=== PATIENT | male | born 1965 | race Caucasian/White ===

== ENCOUNTER 2017-06-17 11:22 | Inpatient (IN) | payer BC ==
[~2017-06-17] VITALS: Ht 185.4 cm; Wt 81.9 kg
[2017-06-17] MEDS ORDERED: MORPHINE SULFATE 8 MG/ML VIAL ONE (11:46)
[2017-06-17] MEDS ORDERED: KETOROLAC TROMETHAMINE 30MG/ML ONE (11:46)
[2017-06-17] MEDS ORDERED: SODIUM CHLORIDE 0.9% 1000ML 1,000 ML IV ONE (11:46)
[2017-06-17 11:48] LABS: APPEARANCE,URINE Cloudy (CLEAR); BASOPHILS % (AUTO) 0.4 % (0.0-5.0); BILIRUBIN,URINE Negative (NEGATIVE); COLOR,URINE Yellow (YELLOW); EOSINOPHILS % (AUTO) 0.4 % (0.0-8.0); GLUCOSE, URINE (UA) Negative (NEGATIVE); KETONES,URINE Trace mg/dL (NEGATIVE); LEUKOCYTE ESTERASE ,URINE Trace (NEGATIVE); MONOCYTES % (AUTO) 5.6 % (3.0-13.0); NEUTROPHILS % (AUTO) 85.6 % (40.0-77.0); NITRATE,URINE Negative (NEGATIVE); OCCULT BLOOD,URINE Negative (NEGATIVE); PH,URINE 8.5 (5.0-8.0); PLATELET COUNT (AUTO) 261 K/uL (130-400); PROTEIN,URINE Negative (NEGATIVE); RED BLOOD CELL COUNT(AUTO) 4.89 MIL/uL (4.50-6.20); RED CELL DISTRIBUTION WIDTH 12.9 % (11.0-15.5); WHITE BLOOD COUNT (AUTO) 12.8 K/uL (4.8-10.8)
[2017-06-17 12:08] LABS: AMORPHOUS SEDIMENT,UR Few /LPF (None Seen); BACTERIA,URINE Few /HPF (None Seen); RBC,URINE None Seen /HPF (0-1); SQUAMOUS EPITHELIAL CELL,UR Few /LPF (0-2)
[2017-06-17 12:10] LABS: ALBUMIN 4.1 g/dL (3.5-5.0); BILIRUBIN,DIRECT 0.2 mg/dL (0.0-0.3); BILIRUBIN,TOTAL 1.1 mg/dL (0.2-1.0); CREATININE 0.9 mg/dL (0.5-1.5); POTASSIUM 4.2 mmol/L (3.5-5.1)
[2017-06-17] MEDS ORDERED: LEVOFLOXACIN 750 MG/D5W 150 ML 150 ML ONE (13:01)
[2017-06-17] MEDS ORDERED: METRONIDAZOLE 500MG/100ML BAG 100 ML ONE (13:01)
[2017-06-17 16:00] VITALS: BP 125/62
[2017-06-17] MEDS ORDERED: HYDRALAZINE HCL 20 MG/ML VIAL IV PRN (17:30)
[2017-06-17] MEDS ORDERED: ONDANSETRON HCL 4 MG/2 ML VIAL IVP PRN (17:30)
[2017-06-17] MEDS: MORPHINE SULFATE 2 MG/ML 1ML SYG IM PRN (18:07)
[2017-06-17] MEDS: ENOXAPARIN SODIUM 40 MG/0.4 ML SYRINGE SQ SCH (18:08)
[2017-06-17] MEDS: SODIUM CHLORIDE 0.9% 1000ML 1,000 ML IV SCH (18:08)
[2017-06-17 19:24] VITALS: BP 101/59
[2017-06-17] MEDS: METRONIDAZOLE 500MG/100ML BAG 100 ML IV SCH ×2 (20:26→20:31)
[2017-06-17] MEDS: FAMOTIDINE/PF 20 MG/2 ML VIAL IV SCH (20:26)
[2017-06-18 00:26] VITALS: BP 121/71
[2017-06-18] MEDS: MORPHINE SULFATE 2 MG/ML 1ML SYG IM PRN ×2 (02:30→06:27)
[2017-06-18 04:18] VITALS: BP 128/69
[2017-06-18 04:59] LABS: BASOPHILS % (AUTO) 0.2 % (0.0-5.0); EOSINOPHILS % (AUTO) 0.1 % (0.0-8.0); HEMATOCRIT 41.2 % (42-54); LYMPHOCYTES % (AUTO) 6.2 % (21.0-51.0); MEAN CORPUSCULAR HEMOGLOBIN 31.7 pg (27.0-33.0); MEAN CORPUSCULAR HGB CONC 33.8 g/dL (32.0-36.0); MEAN CORPUSCULAR VOLUME 93.8 fL (79-99); MONOCYTES % (AUTO) 6.8 % (3.0-13.0); NEUTROPHILS % (AUTO) 86.7 % (40.0-77.0); PLATELET COUNT (AUTO) 226 K/uL (130-400); RED CELL DISTRIBUTION WIDTH 12.8 % (11.0-15.5)
[2017-06-18 05:10] LABS: CREATININE 0.9 mg/dL (0.5-1.5); POTASSIUM 4.1 mmol/L (3.5-5.1)
[2017-06-18] MEDS: METRONIDAZOLE 500MG/100ML BAG 100 ML IV SCH ×3 (06:04→21:13)
[2017-06-18] MEDS: SODIUM CHLORIDE 0.9% 1000ML 1,000 ML IV SCH ×2 (06:25→21:13)
[2017-06-18 08:00] VITALS: BP 130/74
[2017-06-18] MEDS ORDERED: MORPHINE SULFATE 2 MG/ML 1ML SYG IVP PRN (09:30)
[2017-06-18] MEDS: FAMOTIDINE/PF 20 MG/2 ML VIAL IV SCH ×2 (09:45→21:13)
[2017-06-18] MEDS: ENOXAPARIN SODIUM 40 MG/0.4 ML SYRINGE SQ SCH (09:45)
[2017-06-18 12:00] VITALS: BP 121/77
[2017-06-18] MEDS: LEVOFLOXACIN 500 MG/D5W 100 ML 100 ML IV SCH (12:16)
[2017-06-18] MEDS: HYDROMORPHONE HCL 2 MG/ML VIAL IVP PRN ×3 (12:18→21:14)
[2017-06-18 16:11] VITALS: BP 122/66
[2017-06-18 20:00] VITALS: BP 115/70
[2017-06-19] VITALS (7 sets, daily range): BP systolic 111–130; BP diastolic 58–72
[2017-06-19] MEDS: HYDROMORPHONE HCL 2 MG/ML VIAL IVP PRN (02:53)
[2017-06-19] MEDS: METRONIDAZOLE 500MG/100ML BAG 100 ML IV SCH ×3 (06:07→22:16)
[2017-06-19] MEDS: FAMOTIDINE/PF 20 MG/2 ML VIAL IV SCH ×2 (09:55→20:49)
[2017-06-19] MEDS: ENOXAPARIN SODIUM 40 MG/0.4 ML SYRINGE SQ SCH (09:57)
[2017-06-19] MEDS: SODIUM CHLORIDE 0.9% 1000ML 1,000 ML IV SCH (10:00)
[2017-06-19] MEDS ORDERED: MELO-108 PO (10:01)
[2017-06-19 10:45] LABS: BASOPHILS % (AUTO) 0.3 % (0.0-5.0); EOSINOPHILS % (AUTO) 3.7 % (0.0-8.0); HEMATOCRIT 40.4 % (42-54); LYMPHOCYTES % (AUTO) 9.8 % (21.0-51.0); MEAN CORPUSCULAR HEMOGLOBIN 32.8 pg (27.0-33.0); MEAN CORPUSCULAR HGB CONC 34.6 g/dL (32.0-36.0); MEAN CORPUSCULAR VOLUME 94.9 fL (79-99); MONOCYTES % (AUTO) 6.5 % (3.0-13.0); NEUTROPHILS % (AUTO) 79.7 % (40.0-77.0); PLATELET COUNT (AUTO) 248 K/uL (130-400); RED BLOOD CELL COUNT(AUTO) 4.25 MIL/uL (4.50-6.20); RED CELL DISTRIBUTION WIDTH 12.7 % (11.0-15.5); WHITE BLOOD COUNT (AUTO) 8.6 K/uL (4.8-10.8)
[2017-06-19 10:53] LABS: CREATININE 0.8 mg/dL (0.5-1.5); POTASSIUM 4.4 mmol/L (3.5-5.1)
[2017-06-19] MEDS: LEVOFLOXACIN 500 MG/D5W 100 ML 100 ML IV SCH (13:12)
[2017-06-20] MEDS ORDERED: LOPERAMIDE HCL 2 MG CAP PO ONE (01:25)
[2017-06-20] MEDS ORDERED: LOPERAMIDE HCL 2 MG CAP PO PRN (01:30)
[2017-06-20 04:10] VITALS: BP 127/77
[2017-06-20 05:16] LABS: BASOPHILS % (AUTO) 0.2 % (0.0-5.0); EOSINOPHILS % (AUTO) 6.8 % (0.0-8.0); HEMATOCRIT 42.6 % (42-54); LYMPHOCYTES % (AUTO) 11.9 % (21.0-51.0); MEAN CORPUSCULAR HEMOGLOBIN 32.6 pg (27.0-33.0); MEAN CORPUSCULAR HGB CONC 34.7 g/dL (32.0-36.0); MEAN CORPUSCULAR VOLUME 93.9 fL (79-99); MONOCYTES % (AUTO) 7.4 % (3.0-13.0); NEUTROPHILS % (AUTO) 73.7 % (40.0-77.0); PLATELET COUNT (AUTO) 288 K/uL (130-400); RED BLOOD CELL COUNT(AUTO) 4.54 MIL/uL (4.50-6.20); RED CELL DISTRIBUTION WIDTH 12.5 % (11.0-15.5); WHITE BLOOD COUNT (AUTO) 7.6 K/uL (4.8-10.8)
[2017-06-20 06:06] LABS: CREATININE 0.9 mg/dL (0.5-1.5); POTASSIUM 3.5 mmol/L (3.5-5.1)
[2017-06-20] MEDS: METRONIDAZOLE 500MG/100ML BAG 100 ML IV SCH ×2 (06:11→15:41)
[2017-06-20 07:55] VITALS: BP 124/78
[2017-06-20] MEDS: FAMOTIDINE/PF 20 MG/2 ML VIAL IV SCH (08:30)
[2017-06-20] MEDS: ENOXAPARIN SODIUM 40 MG/0.4 ML SYRINGE SQ SCH (08:31)
[2017-06-20 12:00] VITALS: BP 143/96
[2017-06-20] MEDS: LEVOFLOXACIN 500 MG/D5W 100 ML 100 ML IV SCH (12:52)
[2017-06-20 15:30] VITALS: BP 118/70
[2017-06-20] MEDS ORDERED: TRAM50TA2 PO (16:19)
[2017-06-20] MEDS ORDERED: METR500T PO (16:19)
[2017-06-20] MEDS ORDERED: LEVO500T2 PO (16:19)
== END 2017-06-20 16:55 | disposition home or self-care (01) | DRG 872 ==
LOC: EDH 11:22 → EDHIP 13:52 → 4BH 15:21
PROVIDERS: ADMIT Family Medicine; ATTEND Family Medicine
DX: A41.9 Sepsis, unspecified organism (principal); K56.7 Ileus, unspecified; K57.32 Diverticulitis of large intestine without perforation or abscess without bleeding; F10.10 Alcohol abuse, uncomplicated; Z72.0 Tobacco use; Z80.0 Family history of malignant neoplasm of digestive organs; Z82.0 Family history of epilepsy and other diseases of the nervous system; Z88.7 Allergy status to serum and vaccine
CPT/HCPCS: 36415; 74176; 80048; 80076; 81001; 83690; 85025; 87324; J1170; J1650; J1885; J1956; J2270; J3490; J7030